=== PATIENT | male | born 1950 ===

== ENCOUNTER 2017-04-02 08:43 | Day surgery (SDC) | payer MEDICARE ==
[~2017-04-02 08:43] MED LIST: Ciprofloxacin 0.3% OPTH SOLN OD SCH; Flurbiprofen 0.03% Opht SOLN OD SCH; Lactated Ringer's 500 ML IV ONE; Phenylephrine 2.5% Opht Soln OD SCH; Tropicamide 1% Opht SOLUTION OD SCH; acetaZOLAMIDE 500 mg SR Cap PO ONE
[2017-04-02] MEDS: Carbachol 0.01% IO ONE ×2 (09:36→11:08)
[2017-04-02] MEDS: Chondroitin/Hyaluronate Opth Syringe KIT (0.55 ml-0.5 ml) IO ONE ×2 (09:36→11:08)
[2017-04-02] MEDS: Hyaluronidase Human, Recombi 150 U/ML VIAL ONE ×2 (09:37→10:58)
[2017-04-02] MEDS: Lidocaine 2% Inj (20ml) ONE ×2 (09:37→10:58)
[2017-04-02] MEDS: Povidone Iodine Ophthalmic 5% Soln ONE ×2 (09:38→10:57)
[2017-04-02] MEDS: Tetracaine 0.5% Ophth (OR ONLY) ONE ×2 (09:39→11:09)
[2017-04-02] MEDS ORDERED: Lactated Ringer's 500 ML IV ONE ×2 (09:40)
[2017-04-02] MEDS ORDERED: Lactated Ringer's 1,000 ML IV ONE (09:43)
[2017-04-02 09:52] VITALS: O2SAT 97
[2017-04-02] MEDS ORDERED: Midazolam 2 MG/2 ML VIAL ONE (10:58)
[2017-04-02] MEDS ORDERED: acetaZOLAMIDE 500 mg SR Cap PO SCH (11:45)
[2017-04-02 12:17] VITALS: BP 154/86; PULSE 78; RESP 15; TEMP 97.4
--- NOTE | 2017-04-02 13:15 | OP ---
PROCEDURE DATE: 04/02/2017 PREOPERATIVE DIAGNOSIS: Cataract, right eye. POSTOPERATIVE DIAGNOSIS: Cataract, right eye. SURGEON: Klever Reagan MD CO-SURGEON: Constantin Biswas MD OPERATIVE PROCEDURE: Phacoemulsification, right eye, insertion of posterior chamber lens implant. ANESTHESIA TYPE: Local intravenous sedation. PROCEDURE: The patient was brought into the operating room, placed in supine position, prepped and draped in the usual fashion for ophthalmic surgery. Lid speculum was inserted, lids and exposing globe. A side-port incision was made superiorly and inferiorly with a disposable sharp blade. Anterior chamber was filled with Viscoat. A near clear corneal incision was made temporally with a 2.75-mm keratome. Capsulorrhexis was then performed with Utrata forceps. Hydrodissection carried out with balanced salt solution. Nucleus was phacoemulsified. Remaining cortical fragments were removed with a split irrigation and aspiration system. The capsular sac was filled with Provisc. A posterior chamber lens was then injected into the capsular sac and rotated into horizontal position. Provisc was aspirated out of the anterior chamber. The pupil was constricted with Miochol. The wound was found to be watertight. Topical Betadine, Timoptic, and TobraDex ointment and pressure patch were applied. The patient tolerated the procedure well. Klever Reagan MD
== END 2017-04-02 12:32 | disposition home or self-care (01) ==
LOC: C.SDS 08:43
PROVIDERS: ATTEND Ophthalmology
DX: H26.9 Unspecified cataract (principal)
CPT/HCPCS: 66984; J2250; J3470; J7120; V2632